=== PATIENT | female | born 1995 | race Caucasian/White ===

== ENCOUNTER 2024-08-02 19:17 | Emergency (ER) | payer BC ==
[~2024-08-02] VITALS: Ht 162.6 cm; Wt 78.6 kg
[2024-08-02 19:22] VITALS: BP 141/95; PULSE 99; TEMP 97.9; O2SAT 100
--- NOTE | 2024-08-02 19:33 | Physician Documentation ---
History of Present Illness ~ Chief Complaint: Vomiting Stated Complaint: FLU SYMPTOMS Time Seen by MD: 22:43 OK to notify your PCP?: Yes Source: patient Mode of Arrival: POV Exam Limitations: no limitations HPI 28-year-old female reports having vomiting since 5:00 a.m. this morning and generally not feeling well during the day. Last night she was at a wedding and admits to drinking some alcohol. Denies any abdominal pain or diarrhea. Additional note by Edwin Means, DO: I took over the care of this patient from previous physician. I reviewed any previous notes available, obtain my own history, review of systems and physical examination was performed by myself. Pleasant 28-year-old female confirms the story. She states that she started vomiting at 4:00 a.m. after waking up with a severe nausea. She is feeling poorly throughout the day including generalized weakness. And no particular palliating factors or aggravating factors for for nausea or vomiting, too numerous to count episodes. Attempted to treat with the girlfriend without any success. Denies any abdominal pain. Reports chills during the actual act of vomiting. She reports that she went to the wedding but did not have a lot of alcohol during that event. She was exposed to the elements yesterday and it was a very hot day. No known sick contacts and nobody else at the wedding got sick. Denies any diarrhea. Reports that her and her the currently on Ozempic therapy and she took a shadow as epic after returning from the wedding. Medication Reconciliation Allergies: Coded Allergies: No Known Allergies (Unverified , 04/28/15) Review of Systems All Other Systems at this time: Reviewed and Negative ROS 10 point review of systems was performed and unless noted above in HPI is negative for acute process/complaint. Physical Exam Vital Signs: Temperature: 97.9, Heart Rate: 99, Respiratory Rate: 16, BP: 141/95, Pulse Oximetry: 100, Weight: 78.640 Oxygen Flow Rate: 0 Physical Exam GENERAL: Awake, alert, oriented, GCS 15, no apparent distress, non-toxic appearing, answers questions, follows commands appropriately. HEENT: Atraumatic, normocephalic, pupils equal, extraocular muscles intact, sclerae anicteric, mucus membranes very dry, oropharynx is clear, no stridor. NECK: supple, full active range of motion, trachea midline, no thyromegaly, no lymphadenopathy, no JVD. CARDIOVASCULAR: Tachycardic and regular rate/rhythm, no murmurs/gallops/rubs, Pulses are 2+ in all extremities and symmetric. Capillary refill less than 2 seconds. PULMONARY: Nonlabored, good air movement ,no respiratory distress, speaking in full sentences, clear to auscultation bilaterally, no wheezing, no ronchi, no rales, no accessory muscle use. GASTROINTESTINAL: Soft, non-tender, non-distended, normal active bowel sounds, no organomegaly, no pulsatile masses, no CVA tenderness. NEUROLOGIC: Lucid with normal mental status. Normal facial symmetry. Moves all extremities symmetrically and with purpose. No truncal ataxia. Speech is fluid without evidence of dysarthria or aphasia, no focal deficits appreciated. MUSCULOSKELETAL: There is full range of motion of all extremities. There is no joint pain or joint swelling or joint erythema. There is no muscle pain or tenderness or swelling. EXTREMITIES: warm, well-perfused, no cyanosis, no clubbing, no edema, no acute deformities. Skin: warm, dry, no rashes or lesions, no jaundice, no petechiae orpurpura. No ecchymosis. PSYCHIATRIC: Normal affect, normal insight, normal concentration. Focused exam: [] Progress Results/Orders Results/Orders Orders - EDWIN MEANS DO Urinalysis, Cult If Indicated (08/02/24 19:27) Hcg, Ur Ql (08/02/24 19:27) Completed Orders - EDWIN MEANS DO Cbc/Diff (08/02/24 19:27) Lipase (08/02/24 19:27) CMP (08/02/24 19:27) Normal Saline 1000ml (Sodium Chloride 10 (08/02/24 22:45) Prochlorperazine Inj (Compazine Inj) (08/02/24 22:45) Medications Received in ER Medications (Trade) Dose Ordered Sig/Gloria Route PRN Reason Start Time Stop Time Status Last Admin Dose Admin Sodium Chloride 1,000 ml @ 1,000 mls/hr ONCE ONCE IV 08/02/24 22:45 08/02/24 23:44 DC 08/02/24 23:15 1,000 MLS/HR (Compazine inj) 10 mg ONCE ONCE IV 08/02/24 22:45 08/02/24 22:46 DC 08/02/24 23:15 10 MG Vital Signs 08/02/24 08/02/24 19:22 22:06 Temp 97.9 Pulse 99 Resp 16 16 B/P (MAP) 141/95 Pulse Ox 100 O2 Flow Rate 0 Laboratory Tests Test 08/02/24 20:18 White Blood Count 9.3 Red Blood Count 5.31 Hemoglobin 16.0 Hematocrit 47.3 H Mean Corpuscular Volume 89.1 Mean Corpuscular Hemoglobin 30.1 Mean Corpuscular Hemoglobin Concent 33.8 Red Cell Distribution Width 13.5 Platelet Count 228 Mean Platelet Volume 8.6 Neutrophils (%) (Auto) 75.4 H Lymphocytes (%) (Auto) 18.2 L Monocytes (%) (Auto) 5.8 Eosinophils (%) (Auto) 0.3 Basophils (%) (Auto) 0.3 Neutrophils # (Auto) 7.0 Lymphocytes # (Auto) 1.7 Monocytes # (Auto) 0.5 Eosinophils # (Auto) 0.0 Basophils # (Auto) 0.0 CBC Comment Sodium Level 141 Potassium Level 3.8 Chloride Level 105 Carbon Dioxide Level 27.2 Anion Gap 9 Blood Urea Nitrogen 12 Creatinine 0.82 Estimated GFR/1.73 m2 84 BUN/Creatinine Ratio 14.6 Glucose Level 85 Calcium Level 9.5 Total Bilirubin 1.0 Aspartate Amino Transf (AST/SGOT) 23 Alanine Aminotransferase (ALT/SGPT) 32 Alkaline Phosphatase 78 Total Protein 8.5 H Albumin 4.8 Globulin 3.7 Albumin/Globulin Ratio 1.3 Lipase 22 Chemistry Comments Medical Decision Making Findings Facility Status: ED [facility], [facility] process The plan was discussed with the patient, who demonstrates clear understanding of the plan and is in agreement with the plan unless otherwise noted in the chart. All questions have been answered, all concerns were addressed unless otherwise documented. I was available throughout their ED stay for frequent reassessment and questions. Differential Diagnoses (considered and possible or likely): [Viral gastroenteritis, preformed toxin ingestion, Ozempic side effect, dehydration, electrolyte derangement] ??Differential Diagnoses (considered and unlikely, not requiring evaluation currently): [Unlikely to represent acute intra-abdominal process requiring surgical intervention] MDM Data Please see HPI for the following: Independent Historians and external Records Review. Historian: [Patient] Independent Historians: ?[Significant other] Medication Management: [Reviewed medication list] Social History and determinants: [Reviewed] Please see the body of the note for the following: Any independent interpretations of ECG, imaging studies. All vitals signs/haemodynamics, ordered tests were independently reviewed and interpreted by myself. Nursing triage complaint and vitals reviewed, additional nursing notes were reviewed as available and I agree unless otherwise noted or documented in contradiction in the chart Vital Signs: Independently reviewed Labs: Independently interpreted Imaging: Independently interpreted Old Medical Records: Independently reviewed, see HPI for relevant summary and information Additionally notably showing: [Hemodynamically stable. Unremarkable laboratory workup.] Tests considered but not ordered include: [Imaging does not appear to be necessary] Social Determinants of Health Impact: Patient was evaluated in [facility], or [facility] [place] to healthcare due to below par ratio of patient to medical providers. [] Comorbid Conditions Impacting Present Evaluation and Care/Treatment: [On Ozempic therapy] Management Discussions with other Healthcare Providers: [None] Treatment and Disposition Medication Management (Given or considered): [Fluid resuscitation was provided for treatment of clinically and/or laboratory apparent dehydration., antiemetic]. See EMR for details Consideration for Hospitalization/Escalation/Deescalation of Care: Admission for observation has been considered, [however the patient is able to tolerate p.o., their symptoms are controlled, they are able to rely on oral medications, and their chief complaint/diagnosis can be managed on outpatient basis.] ?ED Course:?[Markedly improved, desires to go home] ?Shared decision making:?[Patient is hemodynamically stable for discharge home with follow with their primary care provider. [ ] Specific and cautious return precautions provided and discussed with full understanding. Any incidental findings were also discussed and follow up recommendations given. [] All questions answered. Patient/family were able to verbalize back return precautions. Patient/family agree to plan. Copies of imaging and laboratory studies were provided.] Code status:?FULL Please see the full Electronic Medical Record for full details of nursing documentation, medications list, other records of complete past medical history and conditions, vital signs, laboratory studies, and any radiologic study i nterpretations by radiologists. Portions of this note were completed using [employer] dictation software and as a result there may exist minor errors in spelling. I have reviewed elements of past family and social history and agree as included in note. Departure Disposition: HOME / SELF CARE / HOMELESS Impression: Primary Impression: Nausea and vomiting Additional Impression: Dehydration Condition: Improved Discharge Instructions: Dehydration, Adult, Nausea and Vomiting, Adult Referrals: NO PRIMARY CARE PROVIDER (PCP) Prescriptions Prochlorperazine Maleate (Compazine) 5 Mg Tablet 1 TAB PO TID PRN for nausea/vomiting, #20 TAB 0 Refills Prov: EDWIN MEANS DO 08/02/24 Education Educated: Patient Educated regarding: diagnosis, treatment, prognosis, need for follow up Additional Comment Medical Screen Exam This patient recieved a medical screening examination. After reviewing the individual's medical complaints with presenting symptoms and performing an appropriate physical examination, it was determined that no immediate life- threatening emergency medical condition is present. This individual is also not a women having contractions. Signature Scribe Signature: No scribe Attestation: This note accurately reflects clinical decisions, work performed by myself, DO TESSIE Mon ASHLEY D [facility] Aug 02, 2024 19:33 EDWIN MEANS DO Aug 02, 2024 23:56
[2024-08-02 20:37] LABS: BASOPHILS % (AUTO) 0.3 % (0-1); EOSINOPHILS % (AUTO) 0.3 % (0-6); HEMATOCRIT 47.3 % (35.0-45.0); LYMPHOCYTES # (AUTO) 1.7 X10'3 (1.1-4.8); LYMPHOCYTES % (AUTO) 18.2 % (21-51); MEAN CORPUSCULAR HEMOGLOBIN 30.1 PG (27.0-31.0); MEAN CORPUSCULAR HGB CONC 33.8 g/dL (33.0-36.5); MEAN CORPUSCULAR VOLUME 89.1 FL (78-98); MEAN PLATELET VOLUME 8.6 FL (7.4-10.4); MONOCYTES # (AUTO) 0.5 X10'3 (0-0.9); MONOCYTES % (AUTO) 5.8 % (2-12); NEUTROPHILS % (AUTO) 75.4 % (42-75); PLATELET COUNT 228 X10'3 (140-440); RED BLOOD COUNT 5.31 X10'6 (4.20-5.60); RED CELL DISTRIBUTION WIDTH 13.5 % (11.5-14.5); WHITE BLOOD COUNT 9.3 X10'3 (4.5-11.0)
[2024-08-02 21:00] LABS: ALANINE AMINOTRANSFERASE 32 U/L (12-78); ALBUMIN 4.8 G/DL (3.4-5.0); ALBUMIN/GLOBULIN RATIO 1.3 (1.1-1.5); ALKALINE PHOSPHATASE 78 IU/L (46-116); ANION GAP 9 (8-16); ASPARTATE AMINO TRANSFERASE 23 U/L (10-37); BLOOD UREA NITROGEN 12 MG/DL (7-18); BUN/CREATININE RATIO 14.6 (10.0-20.0); CALCIUM 9.5 MG/DL (8.5-10.1); CHLORIDE 105 MMOL/L (99-107); CREATININE 0.82 MG/DL (0.40-0.90); GLUCOSE 85 MG/DL (70-104); LIPASE 22 U/L (16-77); POTASSIUM 3.8 MMOL/L (3.5-5.1); SODIUM 141 MMOL/L (135-145); TOTAL CARBON DIOXIDE 27.2 MMOL/L (24-32); TOTAL PROTEIN 8.5 G/DL (6.4-8.2); eCRCL 89 ML/MIN; eGFR 84 ML/MIN
[2024-08-02 22:06] VITALS: RESP 16
[2024-08-02] MEDS: normal saline 1000ml 1,000 ML IV ONE (23:15)
[2024-08-02] MEDS: proCHLORperazine 10 MG/2 ml inj IV ONE (23:15)
[2024-08-02] MEDS ORDERED: PROC5TAB56 PO (23:52)
== END 2024-08-03 00:32 | disposition home or self-care (01) ==
LOC: ER 19:18
DX: E86.0 Dehydration (principal); R11.2 Nausea with vomiting, unspecified
CPT/HCPCS: 36415; 80053; 83690; 85025; 96361; 96374; 99283; J0780; J7030